=== PATIENT | female | born 1940 | race African-American/Black ===

== ENCOUNTER 2016-11-25 10:42 | Emergency (ER) | payer MEDICAID ==
[~2016-11-25] VITALS: Wt 63.5 kg
[~2016-11-25 10:42] MED LIST: AMLO-218 PO; BACTDS PO; CEPH-443 PO; FURO20TA3 PO
[2016-11-25] MEDS ORDERED: BACTDS PO (13:03)
[2016-11-25] MEDS ORDERED: CEPH-443 PO (13:03)
--- NOTE | 2016-11-25 13:59 | ERD ---
ER Documentation Chief Complaint Date/Time DATE: 11/25/16 TIME: 13:58 Chief Complaint LEFT HIP WOUND POSSIBLY INFECTED LAST 5 DAY, NO FEVERS. HPI Patient is a 76-year-old female with dementia and hypertension who presents with a bedsore. The patient has a bedsore to the right hip. The patient has had this in the past. The patient had a cellulitis of a right-sided bedsore in July and was seen in the emergency department on August 13, 2016 for the same reason. The symptoms started 3-5 days ago. Daughter has been trying to use distilled water to clean the area. She mentions that there was "runny and pus". The patient has had no fevers. Please note the history and physical exam is limited secondary to patient's dementia. ROS All systems reviewed and are negative except as per history of present illness. Medications Home Meds Active Scripts Sulfamethoxazole-Trimethoprim* (Bactrim* DS) 800-160 Mg Tab, 1 TAB PO BID for 7 Days, TAB Prov:ANTONIA JEREZ MD 11/25/16 Cephalexin* (Keflex*) 500 Mg Capsule, 500 MG PO QID for 7 Days, CAP Prov:ANTONIA JEREZ MD 11/25/16 Reported Medications Furosemide* (Furosemide*) Unknown Strength Tablet, PO DAILY, #60 TAB 08/13/16 Amlodipine Besylate* (Norvasc*) 10 Mg Tablet, 10 MG PO DAILY, TAB 08/13/16 Discontinued Scripts Sulfamethoxazole-Trimethoprim* (Bactrim* DS) 800-160 Mg Tab, 1 TAB PO BID for 10 Days, TAB Prov:QAMAR GRIFFITHS DO 08/13/16 Cephalexin* (Keflex*) 500 Mg Capsule, 500 MG PO QID for 10 Days, CAP Prov:QAMAR GRIFFITHS DO 08/13/16 Allergies Allergies: Coded Allergies: No Known Allergy (Unverified , 11/25/16) PMhx/Soc Medical and Surgical Hx: pt denies Surgical Hx History of Surgery: No Anesthesia Reaction: No Hx Neurological Disorder: No Hx Respiratory Disorders: No Hx Cardiac Disorders: Yes (HTN) Hx Psychiatric Problems: Yes (DEMENTIA) Hx Miscellaneous Medical Probl: Yes (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 Neck: Full range of motion..~ No meningismus. Resp: Clear to auscultation bilaterally Cardio: Regular rate and rhythm, no murmurs Abd: Soft, non tender, non distended. Normal bowel sounds Skin: 1 cm wound to the right hip without surrounding cellulitis, there is some foul-smelling discharge from the wound but no fluctuance Back: No midline or flank tenderness Ext: No cyanosis, or edema Neur: Awake but demented at baseline Procedures/MDM Patient is a 76-year-old female who presents with a right hip ulcer with infection. She has some foul-smelling discharge from the area but there is no fluctuance and no surrounding erythema. She is afebrile with stable vital signs. At this point I believe outpatient management would be appropriate with Keflex and Bactrim. However if she develops fevers or this infection worsens she could return to the ER for IV antibiotics. I discussed with the daughter and she agrees with this plan. I would like to avoid the chance of nosocomial infections. I doubt sepsis or osteomyelitis. Departure Diagnosis: Primary Impression: Cellulitis Site of cellulitis: extremity Site of cellulitis of extremity: lower extremity Laterality: right Qualified Code: L03.115 - Cellulitis of right lower extremity Condition: Fair Patient Instructions: Cellulitis Referrals: [facility] YOU HAVE RECEIVED A MEDICAL SCREENING EXAM AND THE RESULTS INDICATE THAT YOU DO NOT HAVE A CONDITION THAT REQUIRES URGENT TREATMENT IN THE EMERGENCY DEPARTMENT. FURTHER EVALUATION AND TREATMENT OF YOUR CONDITION CAN WAIT UNTIL YOU ARE SEEN IN YOUR DOCTORS OFFICE WITHIN THE NEXT 1-2 DAYS. IT IS YOUR RESPONSIBILITY TO MAKE AN APPOINTMENT FOR FOLOW-UP CARE. IF YOU HAVE A PRIMARY DOCTOR --you should call your primary doctor and schedule an appointment IF YOU DO NOT HAVE A PRIMARY DOCTOR YOU CAN CALL OUR PHYSICIAN REFERRAL HOTLINE AT IF YOU CAN NOT AFFORD TO SEE A PHYSICIAN YOU CAN CHOSE FROM THE FOLLOWING [facility] [id number] [facility]. [facility] [address] [facility]. [facility] [address] [facility] [address] [facility]. [facility] [address] [facility]. [facility] [address] Additional Instructions: Call your primary care doctor TOMORROW for an appointment during the next 1-2 days.See the doctor sooner or return here if your condition worsens before your appointment time. ANTONIA JEREZ MD Nov 25, 2016 13:59
== END 2016-11-25 13:25 | disposition home or self-care (01) ==
LOC: E/R 10:42
DX: L03.115 Cellulitis of right lower limb (principal); R40.2142 Coma scale, eyes open, spontaneous, at arrival to emergency department; R40.2362 Coma scale, best motor response, obeys commands, at arrival to emergency department; R40.2242 Coma scale, best verbal response, confused conversation, at arrival to emergency department; I10 Essential (primary) hypertension
CPT/HCPCS: 99284